=== PATIENT | male | born 1980 | race Caucasian/White ===

== ENCOUNTER 2021-02-24 19:45 | Emergency (ER) | payer OTHER ==
[2021-02-24] MEDS ORDERED: NAPROXEN500 MG PO (22:36)
== END 2021-02-24 22:45 | disposition home or self-care (01) ==
LOC: ER1 19:45
DX: S10.93XA Contusion of unspecified part of neck, initial encounter (principal); I10 Essential (primary) hypertension; Z86.16 Personal history of COVID-19; W22.8XXA Striking against or struck by other objects, initial encounter
CPT/HCPCS: 70491; 99283; Q9967